=== PATIENT | female | born 1955 | race Caucasian/White ===

== ENCOUNTER 2019-04-02 18:47 | Emergency (ER) | payer MEDICARE, OTHER, SELFPAY ==
[2019-04-02 18:54] VITALS: BP 135/86; PULSE 84; TEMP 37.2; O2SAT 92
--- NOTE | 2019-04-02 19:01 | DI.RAD.S_ITS ---
PROCEDURE: XR CHEST 2V INDICATIONS: pain TECHNIQUE: 2 views of the chest were acquired. COMPARISON: None. FINDINGS: Surgical changes and devices: None. Lungs and pleura: Trace bilateral pleural effusions. Cephalization of pulmonary vasculature and interstitial prominence compatible with CHF.. Mediastinum: Mediastinal contours are normal. Heart size is normal. Bones and chest wall: No suspicious bony abnormalities. Soft tissues appear unremarkable. IMPRESSION: CHF with trace bilateral pleural effusions. Dictated by: Joanie Gray MD, PhD on 04/02/2019 at 19:39 Approved by: Joanie Gray MD, PhD on 04/02/2019 at 19:39
[2019-04-02 21:00] LABS: Bacteria Urine None Seen
[2019-04-02 21:05] LABS: Add Manual Diff / Slide Review NO; Basophils Absolute Auto 100 /uL (0-100); Basophils Percent Auto 0.6 % (0-2); Eosinophils Absolute Auto 0 /uL (0-450); Eosinophils Percent Auto 0.3 % (2-4); Hematocrit 38.6 % (36-46); Lymphocytes Absolute Auto 900 /uL (1100-4500); Lymphocytes Percent Auto 9.6 % (25-40); Mean Corpuscular HGB Conc 33.7 % (30-36); Mean Corpuscular Hemoglobin 33.7 PG (26-34); Monocytes Absolute Auto 900 /uL (0-900); Monocytes Percent Auto 10.2 % (3-14); Neutrophils Absolute Auto 7200 /uL (1500-7000); Neutrophils Percent Auto 79.3 % (50-75); Platelet Count 206 X10^3/uL (150-400); Red Blood Cell Count 3.86 X10^6/uL (4.0-5.2); Red Cell Distribution Width 13.4 % (11.6-14.8)
[2019-04-02 21:11] LABS: RBC Urine 0-1/HPF (0-5/HPF); Squamous Epithelial Cell Urine None Seen (0-5/HPF); WBC Urine 0-1/HPF (0-5/HPF)
[2019-04-02 21:12] LABS: Culture Indicated Urine Cult Not Indicated
[2019-04-02 21:16] LABS: BUN Creatinine Ratio 27.5 (6-22); Blood Urea Nitrogen 22 mg/dL (7-17); Calcium 9.6 mg/dL (8.4-10.2); Carbon Dioxide 28 mmol/L (22-32); Chloride 102 mmol/L (98-107); Estimated Glomerular Filt Rate > 60.0 mL/min (>60); Glucose 115 mg/dL (80-110); HEMOLYSIS < 15 (0-50); Potassium 4.5 mmol/L (3.4-5.1); Sodium 136 mmol/L (137-145)
[2019-04-02 21:28] LABS: Troponin I < 0.012 ng/mL (0.01-0.034)
[2019-04-02 21:29] LABS: B Type Natriuretic Peptide < 100 (<100)
[2019-04-02 21:52] VITALS: BP 143/80; PULSE 75; RESP 20; O2SAT 95
[2019-04-02 22:30] VITALS: BP 144/77; PULSE 72; RESP 16; O2SAT 94
[2019-04-02 23:00] VITALS: BP 120/94; PULSE 74; RESP 25; O2SAT 94
--- NOTE | 2019-04-02 23:18 | ED.CHESTPAIN ---
HPI - Chest Pain General Chief Complaint: Chest Pain Stated Complaint: thinks she hurt her chest from coughing Time Seen by Provider: 04/02/19 22:21 Source: patient and family Mode of arrival: ambulatory Limitations: no limitations History of Present Illness HPI narrative: The patient comes emergency department complaining of chest pain after an asthma exacerbation last week. She states that she frequently has pain in various places in her chest wall after coughing fits or asthma exacerbations. Patient states that it hurts to take a deep breath. She states she was [place] on [place] for vacation, and that she called her doctor because the pain. She states her doctor said she might have ?punctured a lung? and that she should come here to get checked out. Patient denies any fevers. No nausea or vomiting. No diaphoresis. No history of known heart problems, though she does state that she was told previously that she might have congestive heart failure. Patient denies any swelling in her legs. No other complaints at this time. Related Data Previous Rx's Medication Instructions Recorded hydrocodone-acetaminophen 1 tab PO Q4H PRN #10 tab 04/02/19 Allergies Allergy/AdvReac Type Severity Reaction Status Date / Time Penicillins Allergy Verified 04/02/19 19:00 Review of Systems Constitutional Denies chills, Denies fever(s), Denies lethargy and Denies weakness Eyes Denies change in vision, Denies eye discharge, Denies irritation and Denies loss of vision ENT Ears, Nose, Mouth, and Throat: Denies change in voice, Denies neck pain and Denies sore throat Cardiovascular Reports chest pain, Denies irregular heart rhythm, Denies lightheadedness, Denies palpitations, Denies dyspnea, Denies dyspnea on exertion and Denies orthopnea Respiratory Reports cough, Denies dyspnea and Denies dyspnea on exertion Gastrointestinal Gastrointestinal: Denies abdominal pain, Denies change in bowel habits, Denies diarrhea, Denies nausea and Denies vomiting Genitourinary Denies hematuria, Denies flank pain, Denies urinary incontinence and Denies urinary urgency Musculoskeletal Denies neck pain Integumentary/Breasts Denies pruritus, Denies erythema, Denies rash and Denies wounds Neurologic Denies confusion, Denies loss of vision and Denies weakness Psychiatric Denies anxiety, Denies confusion, Denies depression, Denies homicidal ideation and Denies suicidal ideation Endocrine Denies palpitations Hematologic/Lymphatic Denies easy bruising [facility] Medical History Asthma (Acute) Surgical History No pertinent past surgical history (Acute) Social History Smoking Status: Former smoker Social History Smoking Status: Former smoker Exam Initial Vital Signs Initial Vital Signs: Vital Signs Temperature 98.9 F 04/02/19 18:54 Pulse Rate 84 04/02/19 18:54 Blood Pressure 135/86 04/02/19 18:54 Pulse Oximetry 92 04/02/19 18:54 Const General: cooperative and well developed Nutritional Appearance: well nourished Orientation: alert, awake, oriented x3 and not confused HENMT Head: normocephalic and atraumatic Ears: external ears normal Nose: external nose normal and No nasal discharge Face and sinus: face symmetric and No dry mucous membranes Mouth: oral mucosae normal and moist mucous membranes Teeth and gingiva: dentition normal Eyes General: appearance normal, both eyes and all related structures Eyelids: eyelids normal Conjunctivae: conjunctivae normal Sclera: sclerae normal Pupils: PERRL EOM: EOM intact bilaterally Neck Neck: normal visual inspection, trachea midline, No lymphadenopathy, No midline deformity and No JVD Lymphatic: No lymphedema Chest Other: Chest wall tenderness under left breast. No rib step-off. Resp Effort & Inspection: normal respiratory effort, able to speak in complete sentences, no respiratory distress and no use of accessory muscles Auscultation: clear to auscultation bilaterally, no rales, no rhonchi and no wheezes Cardio Rate: regular rate Rhythm: regular rhythm Heart Sounds: no click, no gallops, no murmurs and no rubs Pulses: normal peripheral pulses GI Inspection: non-distended Palpation: soft, no hepatosplenomegaly, No guarding, No pulsatile mass and No tender Auscultation: normal bowel sounds Back/Spine/Pelvis Back: No CVA tenderness Cervical Spine: cervical ROM normal and No pain with cervical ROM Thoracic/Lumbar Spine: thoracic and lumbar spine normal to inspection Skin General: no rashes or lesions noted, No jaundice and No petechiae Neuro General: alert, oriented x3, gait normal and no focal motor deficits Speech: speech normal Extrem General: full ROM, no clubbing, cyanosis or edema, no pedal edema and no calf tenderness Psych Appearance: well kempt Mental Status: mental status grossly normal Attitude: cooperative Thought Content: normal and suicidality Judgment: judgment good Course Course Narrative: Patient was treated with Toradol and Vicodin in the emergency department, and worked up with a chest x-ray, which showed trace edema in the patient's bilateral lungs. No cardiomegaly. Patient's BNP was less than 100. I discussed with her that while the x-ray reading reported trace fluid in her lungs, there is nothing else to indicate that the patient has congestive heart failure. She should follow up with her primary care physician in [place] where she lives, when she is done with her vacation on [facility]. Orders Ordered: Discontinued Medications Hydrocodone Bitart/Acetaminophen ([place] 5/325) 1 tab PO NOW ONE Stop: 04/02/19 23:19 Last Admin: 04/02/19 23:34 Dose: 1 tab Ketorolac Tromethamine (Toradol) 60 mg IM NOW ONE Stop: 04/02/19 23:19 Last Admin: 04/02/19 23:34 Dose: 60 mg Vital Signs - 8 hr 04/02/19 18:54 04/02/19 21:52 04/02/19 22:30 Temperature 98.9 F Pulse Rate 84 75 72 Respiratory Rate 20 16 Blood Pressure 135/86 Blood Pressure [Left Arm] 143/80 H 144/77 H Pulse Oximetry 92 95 94 04/02/19 23:00 Temperature Pulse Rate 74 Respiratory Rate 25 H Blood Pressure Blood Pressure [Left Arm] 120/94 H Pulse Oximetry 94 MDM - Chest Pain Medical Records Data Attestation: I reviewed the patient's medical records. Lab Data Attestation: I reviewed the patient's lab results. Result diagrams: 04/02/19 20:55 04/02/19 20:55 Lab Results 04/02/19 04/02/19 04/02/19 Range/Units 20:00 20:55 20:55 WBC 9.0 (4.5-11.0) X10^3/uL RBC 3.86 L (4.0-5.2) X10^6/uL Hgb 13.0 (12.0-16.0) g/dL Hct 38.6 (36-46) % MCV 100.0 (80-100) fL MCH 33.7 (26-34) PG MCHC 33.7 (30-36) % RDW 13.4 (11.6-14.8) % Plt Count 206 (150-400) X10^3/uL Neut % (Auto) 79.3 H (50-75) % Lymph % (Auto) 9.6 L (25-40) % [place] % (Auto) 10.2 (3-14) % Eos % (Auto) 0.3 L (2-4) % Baso % (Auto) 0.6 (0-2) % Neut # (Auto) 7200 H (5566-7978) /uL Lymph # (Auto) 900 L (2124-7729) /uL [place] # (Auto) 900 (0-900) /uL Eos # (Auto) 0 (0-450) /uL Baso # (Auto) 100 (0-100) /uL Sodium 136 L (137-145) mmol/L Potassium 4.5 (3.4-5.1) mmol/L Chloride 102 (98-107) mmol/L Carbon Dioxide 28 (22-32) mmol/L BUN 22 H (7-17) mg/dL Creatinine 0.80 (0.52-1.04) mg/dL Estimated GFR > 60.0 (>60) mL/min BUN/Creatinine Ratio 27.5 H (6-22) Glucose 115 H (80-110) mg/dL Calcium 9.6 (8.4-10.2) mg/dL Troponin I (0.01-0.034) ng/mL B-Natriuretic Peptide (<100) Urine RBC 0-1/hpf (0-5/HPF) Urine WBC 0-1/hpf (0-5/HPF) Ur Squamous Epith Cells None seen (0-5/HPF) Urine Bacteria None seen (None) Ur Culture Indicated? Cult not indicated 04/02/19 04/02/19 Range/Units 20:55 20:55 WBC (4.5-11.0) X10^3/uL RBC (4.0-5.2) X10^6/uL Hgb (12.0-16.0) g/dL Hct (36-46) % MCV (80-100) fL MCH (26-34) PG MCHC (30-36) % RDW (11.6-14.8) % Plt Count (150-400) X10^3/uL Neut % (Auto) (50-75) % Lymph % (Auto) (25-40) % [place] % (Auto) (3-14) % Eos % (Auto) (2-4) % Baso % (Auto) (0-2) % Neut # (Auto) (6144-0621) /uL Lymph # (Auto) (5311-2926) /uL [place] # (Auto) (0-900) /uL Eos # (Auto) (0-450) /uL Baso # (Auto) (0-100) /uL Sodium (137-145) mmol/L Potassium (3.4-5.1) mmol/L Chloride (98-107) mmol/L Carbon Dioxide (22-32) mmol/L BUN (7-17) mg/dL Creatinine (0.52-1.04) mg/dL Estimated GFR (>60) mL/min BUN/Creatinine Ratio (6-22) Glucose (80-110) mg/dL Calcium (8.4-10.2) mg/dL Troponin I < 0.012 (0.01-0.034) ng/mL B-Natriuretic Peptide < 100 (<100) Urine RBC (0-5/HPF) Urine WBC (0-5/HPF) Ur Squamous Epith Cells (0-5/HPF) Urine Bacteria (None) Ur Culture Indicated? Urine Dip Bedside Urine Glucose Negative Bedside Urine Bilirubin - Negative Bedside Urine Ketone - Negative Urine Specific [place] 1.020 Bedside Urine Occult Blood + Bedside Urine pH 5.5 Bedside Urine Protein - Negative Bedside Urine Urobilinogen - Negative Bedside Urine Nitrite - Negative Bedside Urine Leukocytes - Negative Esterase Imaging Data Chest x-ray: Radiologist's impression: PROCEDURE: XR CHEST 2V INDICATIONS: pain TECHNIQUE: 2 views of the chest were acquired. COMPARISON: None. FINDINGS: Surgical changes and devices: None. Lungs and pleura: Trace bilateral pleural effusions. Cephalization of pulmonary vasculature and interstitial prominence compatible with CHF.. Mediastinum: Mediastinal contours are normal. Heart size is normal. Bones and chest wall: No suspicious bony abnormalities. Soft tissues appear unremarkable. IMPRESSION: CHF with trace bilateral pleural effusions. Dictated by: Joanie Gray MD, PhD on 04/02/2019 at 19:39 Approved by: Joanie Gray MD, PhD on 04/02/2019 at 19:39 Discharge Plan Departure Patient Disposition: Home Clinical Impression: Chest wall muscle strain Qualifiers: Encounter type: initial encounter Qualified Code(s): S29.011A - Strain of muscle and tendon of front wall of thorax, initial encounter Discharge Date/Time: 04/02/19 23:47 Interventions: ED Discharge Assessment Last Done: 04/02/19 23:46 Instructions: DI for Costochondritis Activity Restrictions/Additional Instructions: Your chest x-ray was read by the radiologist as showing trace fluid in your lungs. However, your lab indicating congestive heart failure was negative. Additionally, you do not have any swelling around your ankles. You may take the medication for pain, as needed. Please follow up with your primary care physician in [place]. Prescriptions: New hydrocodone-acetaminophen 5-325 mg tablet 1 tab PO Q4H PRN (Reason: pain) Qty: 10 RF: 0
--- NOTE | 2019-04-02 23:23 | ED_ITS ---
HPI - Chest Pain General Chief Complaint: Chest Pain Stated Complaint: thinks she hurt her chest from coughing Time Seen by Provider: 04/02/19 22:21 Source: patient and family Mode of arrival: ambulatory Limitations: no limitations History of Present Illness HPI narrative: The patient comes emergency department complaining of chest pain after an asthma exacerbation last week. She states that she frequently has pain in various places in her chest wall after coughing fits or asthma exacerbations. Patient states that it hurts to take a deep breath. She states she was over on [place] for vacation, and that she called her doctor because the pain. She states her doctor said she might have ?punctured a lung? and that she should come here to get checked out. Patient denies any fevers. No nausea or vomit ing. No diaphoresis. No history of known heart problems, though she does state that she was told previously that she might have congestive heart failure. Patient denies any swelling in her legs. No other complaints at this time. Related Data Previous Rx's Medication Instructions Recorded hydrocodone-acetaminophen 1 tab PO Q4H PRN #10 tab 04/02/19 Allergies Allergy/AdvReac Type Severity Reaction Status Date / Time Penicillins Allergy Verified 04/02/19 19:00 Review of Systems Constitutional Denies chills, Denies fever(s), Denies lethargy and Denies weakness Eyes Denies change in vision, Denies eye discharge, Denies irritation and Denies loss of vision ENT Ears, Nose, Mouth, and Throat: Denies change in voice, Denies neck pain and Denies sore throat Cardiovascular Reports chest pain, Denies irregular heart rhythm, Denies lightheadedness, Denies palpitations, Denies dyspnea, Denies dyspnea on exertion and Denies orthopnea Respiratory Reports cough, Denies dyspnea and Denies dyspnea on exertion Gastrointestinal Gastrointestinal: Denies abdominal pain, Denies change in bowel habits, Denies diarrhea, Denies nausea and Denies vomiting Genitourinary Denies hematuria, Denies flank pain, Denies urinary incontinence and Denies urinary urgency Musculoskeletal Denies neck pain Integumentary/Breasts Denies pruritus, Denies erythema, Denies rash and Denies wounds Neurologic Denies confusion, Denies loss of vision and Denies weakness Psychiatric Denies anxiety, Denies confusion, Denies depression, Denies homicidal ideation and Denies suicidal ideation Endocrine Denies palpitations Hematologic/Lymphatic Denies easy bruising PFSH Medical History Asthma (Acute) Surgical History No pertinent past surgical history (Acute) Social History Smoking Status: Former smoker Social History Smoking Status: Former smoker Exam Initial Vital Signs Initial Vital Signs: Vital Signs Temperature 98.9 F 04/02/19 18:54 Pulse Rate 84 04/02/19 18:54 Blood Pressure 135/86 04/02/19 18:54 Pulse Oximetry 92 04/02/19 18:54 Const General: cooperative and well developed Nutritional Appearance: well nourished Orientation: alert, awake, oriented x3 and not confused HENMT Head: normocephalic and atraumatic Ears: external ears normal Nose: external nose normal and No nasal discharge Face and sinus: face symmetric and No dry mucous membranes Mouth: oral mucosae normal and moist mucous membranes Teeth and gingiva: dentition normal Eyes General: appearance normal, both eyes and all related structures Eyelids: eyelids normal Conjunctivae: conjunctivae normal Sclera: sclerae normal Pupils: PERRL EOM: EOM intact bilaterally Neck Neck: normal visual inspection, trachea midline, No lymphadenopathy, No midline deformity and No JVD Lymphatic: No lymphedema Chest Other: Chest wall tenderness under left breast. No rib step-off. Resp Effort & Inspection: normal respiratory effort, able to speak in complete sentences, no respiratory distress and no use of accessory muscles Auscultation: clear to auscultation bilaterally, no rales, no rhonchi and no wheezes Cardio Rate: regular rate Rhythm: regular rhythm Heart Sounds: no click, no gallops, no murmurs and no rubs Pulses: normal peripheral pulses GI Inspection: non-distended Palpation: soft, no hepatosplenomegaly, No guarding, No pulsatile mass and No tender Auscultation: normal bowel sounds Back/Spine/Pelvis Back: No CVA tenderness Cervical Spine: cervical ROM normal and No pain with cervical ROM Thoracic/Lumbar Spine: thoracic and lumbar spine normal to inspection Skin General: no rashes or lesions noted, No jaundice and No petechiae Neuro General: alert, oriented x3, gait normal and no focal motor deficits Speech: speech normal Extrem General: full ROM, no clubbing, cyanosis or edema, no pedal edema and no calf tenderness Psych Appearance: well kempt Mental Status: mental status grossly normal Attitude: cooperative Thought Content: normal and suicidality Judgment: judgment good Course Course Narrative: Patient was treated with Toradol and Vicodin in the emergency department, and worked up with a chest x-ray, which showed trace edema in the patient's bilateral lungs. No cardiomegaly. Patient's BNP was less than 100. I discussed with her that while the x-ray reading reported trace fluid in her lungs, there is nothing else to indicate that the patient has congestive heart failure. She should follow up with her primary care physician in [place] where she lives, when she is done with her vacation on [facility]. Orders Ordered: Discontinued Medications Hydrocodone Bitart/Acetaminophen ([place] 5/325) 1 tab PO NOW ONE Stop: 04/02/19 23:19 Last Admin: 04/02/19 23:34 Dose: 1 tab Ketorolac Tromethamine (Toradol) 60 mg IM NOW ONE Stop: 04/02/19 23:19 Last Admin: 04/02/19 23:34 Dose: 60 mg Vital Signs - 8 hr 04/02/19 18:54 04/02/19 21:52 04/02/19 22:30 Temperature 98.9 F Pulse Rate 84 75 72 Respiratory Rate 20 16 Blood Pressure 135/86 Blood Pressure [Left Arm] 143/80 H 144/77 H Pulse Oximetry 92 95 94 04/02/19 23:00 Temperature Pulse Rate 74 Respiratory Rate 25 H Blood Pressure Blood Pressure [Left Arm] 120/94 H Pulse Oximetry 94 MDM - Chest Pain Medical Records Data Attestation: I reviewed the patient's medical records. Lab Data Attestation: I reviewed the patient's lab results. Result diagrams: 04/02/19 20:55 04/02/19 20:55 Lab Results 04/02/19 04/02/19 04/02/19 Range/Units 20:00 20:55 20:55 WBC 9.0 (4.5-11.0) X10^3/uL RBC 3.86 L (4.0-5.2) X10^6/uL Hgb 13.0 (12.0-16.0) g/dL Hct 38.6 (36-46) % MCV 100.0 (80-100) fL MCH 33.7 (26-34) PG MCHC 33.7 (30-36) % RDW 13.4 (11.6-14.8) % Plt Count 206 (150-400) X10^3/uL Neut % (Auto) 79.3 H (50-75) % Lymph % (Auto) 9.6 L (25-40) % [place] % (Auto) 10.2 (3-14) % Eos % (Auto) 0.3 L (2-4) % Baso % (Auto) 0.6 (0-2) % Neut # (Auto) 7200 H (7784-8398) /uL Lymph # (Auto) 900 L (9596-5371) /uL [place] # (Auto) 900 (0-900) /uL Eos # (Auto) 0 (0-450) /uL Baso # (Auto) 100 (0-100) /uL Sodium 136 L (137-145) mmol/L Potassium 4.5 (3.4-5.1) mmol/L Chloride 102 (98-107) mmol/L Carbon Dioxide 28 (22-32) mmol/L BUN 22 H (7-17) mg/dL Creatinine 0.80 (0.52-1.04) mg/dL Estimated GFR > 60.0 (>60) mL/min BUN/Creatinine Ratio 27.5 H (6-22) Glucose 115 H (80-110) mg/dL Calcium 9.6 (8.4-10.2) mg/dL Troponin I (0.01-0.034) ng/mL B-Natriuretic Peptide (<100) Urine RBC 0-1/hpf (0-5/HPF) Urine WBC 0-1/hpf (0-5/HPF) Ur Squamous Epith Cells None seen (0-5/HPF) Urine Bacteria None seen (None) Ur Culture Indicated? Cult not indicated 04/02/19 04/02/19 Range/Units 20:55 20:55 WBC (4.5-11.0) X10^3/uL RBC (4.0-5.2) X10^6/uL Hgb (12.0-16.0) g/dL Hct (36-46) % MCV (80-100) fL MCH (26-34) PG MCHC (30-36) % RDW (11.6-14.8) % Plt Count (150-400) X10^3/uL Neut % (Auto) (50-75) % Lymph % (Auto) (25-40) % [place] % (Auto) (3-14) % Eos % (Auto) (2-4) % Baso % (Auto) (0-2) % Neut # (Auto) (3492-0938) /uL Lymph # (Auto) (6833-3769) /uL [place] # (Auto) (0-900) /uL Eos # (Auto) (0-450) /uL Baso # (Auto) (0-100) /uL Sodium (137-145) mmol/L Potassium (3.4-5.1) mmol/L Chloride (98-107) mmol/L Carbon Dioxide (22-32) mmol/L BUN (7-17) mg/dL Creatinine (0.52-1.04) mg/dL Estimated GFR (>60) mL/min BUN/Creatinine Ratio (6-22) Glucose (80-110) mg/dL Calcium (8.4-10.2) mg/dL Troponin I < 0.012 (0.01-0.034) ng/mL B-Natriuretic Peptide < 100 (<100) Urine RBC (0-5/HPF) Urine WBC (0-5/HPF) Ur Squamous Epith Cells (0-5/HPF) Urine Bacteria (None) Ur Culture Indicated? Urine Dip Bedside Urine Glucose Negative Bedside Urine Bilirubin - Negative Bedside Urine Ketone - Negative Urine Specific [place] 1.020 Bedside Urine Occult Blood + Bedside Urine pH 5.5 Bedside Urine Protein - Negative Bedside Urine Urobilinogen - Negative Bedside Urine Nitrite - Negative Bedside Urine Leukocytes - Negative Esterase Imaging Data Chest x-ray: Radiologist's impression: PROCEDURE: XR CHEST 2V INDICATIONS: pain TECHNIQUE: 2 views of the chest were acquired. COMPARISON: None. FINDINGS: Surgical changes and devices: None. Lungs and pleura: Trace bilateral pleural effusions. Cephalization of pulmonary vasculature and interstitial prominence compatible with CHF.. Mediastinum: Mediastinal contours are normal. Heart size is normal. Bones and chest wall: No suspicious bony abnormalities. Soft tissues appear unremarkable. IMPRESSION: CHF with trace bilateral pleural effusions. Dictated by: Joanie Gray MD, PhD on 04/02/2019 at 19:39 Approved by: Joanie Gray MD, PhD on 04/02/2019 at 19:39 Discharge Plan Departure Patient Disposition: Home Clinical Impression: Chest wall muscle strain Qualifiers: Encounter type: initial encounter Qualified Code(s): S29.011A - Strain of muscle and tendon of front wall of thorax, initial encounter Discharge Date/Time: 04/02/19 23:47 Interventions: ED Discharge Assessment Last Done: 04/02/19 23:46 Instructions: DI for Costochondritis Activity Restrictions/Additional Instructions: Your chest x-ray was read by the radiologist as showing trace fluid in your lungs. However, your lab indicating congestive heart failure was negative. Additionally, you do not have any swelling around your ankles. You may take the medication for pain, as needed. Please follow up with your primary care physician in [place]. Prescriptions: New hydrocodone-acetaminophen 5-325 mg tablet 1 tab PO Q4H PRN (Reason: pain) Qty: 10 RF: 0
[2019-04-02] MEDS: HYDROCODONE/ACET 5/325 TABLET 1 TAB PO (23:34)
[2019-04-02] MEDS: KETOROLAC 60 MG/2 ML VIAL IM (23:34)
== END 2019-04-02 23:47 | disposition home or self-care (01) ==
PROVIDERS: Emergency Provider Emergency Medicine
DX: S29.011A Strain of muscle and tendon of front wall of thorax, initial encounter (principal)
CPT/HCPCS: 36415; 71046; 80048; 81003; 81015; 83880; 84484; 85025; 96372; 99283; 99284; J1885

== ENCOUNTER → 2020-12-22 10:34 | Outpatient (CLI) | payer MEDICARE, OTHER, SELFPAY ==
--- NOTE | 2020-12-22 10:41 | DI.MRI.S_ITS ---
PROCEDURE: MR CERVICAL SPINE WO CON INDICATIONS: Radiculopathy, cervical region TECHNIQUE: Noncontrast sagittal T1 spin echo and T2 fast spin echo, sagittal STIR, foraminal oblique sagittal T2 fast spin echo, and axial gradient echo or T2 fast spin echo through the cervical spine. COMPARISON: None. FINDINGS: Image quality: Degraded by patient motion artifact. Alignment and Curvature: There is trace C3-C4 and C7-T1 retrolisthesis. There is trace C4-C5 anterolisthesis. There is loss of normal for cervical spine curvature with mild reversal curvature from C4-C7. Bone Marrow: Mild reactive endplate changes noted adjacent to the C3-C4, C4-C5, C5-C6, C6-C7 and C7-T1 discs. Spinal Cord: Visualized spinal cord has normal size and signal. No cerebellar tonsillar herniation. Paraspinous Soft Tissues: No paravertebral masses. Prevertebral soft tissues are normal in thickness. C2-C3: Loss of disc signal. Mild, diffuse disc bulge. Mild bilateral facet hypertrophy. No central stenosis. No neural foraminal narrowing. No neural compression. C3-C4: Loss of disc signal and height. Mild, diffuse disc bulge. Moderate right mild left facet hypertrophy. Moderate to severe narrowing of the central canal. Moderate bilateral uncovertebral joint hypertrophy. Severe bilateral neural foraminal narrowing with compression of the exiting C4 nerve roots. C4-C5: Loss of disc signal. Mild bilateral facet hypertrophy. No central stenosis. Mild bilateral neural foraminal narrowing. No neural compression. C5-C6: Loss of disc signal. Mild, diffuse disc bulge. Mild bilateral facet hypertrophy. Mild right and moderate left uncovertebral joint hypertrophy. Moderate narrowing of the central canal. Moderate right and severe left neural foraminal narrowing with compression of the exiting left C6 nerve root. C6-C7: Loss of disc signal and height. Mild, diffuse disc bulge. Mild bilateral facet hypertrophy. Mild right and moderate left uncovertebral joint hypertrophy. Moderate narrowing of the central canal. Moderate right and severe left neural foraminal narrowing with compression of the exiting left C7 nerve root. C7-T1: Loss of disc signal and height. Moderate, diffuse disc bulge. Mild bilateral facet hypertrophy. Mild narrowing of the central canal. Severe bilateral neural foraminal narrowing with compression of the exiting C8 nerve roots. IMPRESSION: 1. Multilevel degenerative disc disease. 2. Multilevel facet arthropathy. 3. Moderate to severe C3-C4 central canal narrowing. 4. Severe bilateral C3-C4 and C7-T1 neural foraminal narrowing with compression of the exiting bilateral C4 and C8 nerve roots. Severe left C5-C6 and C6-C7 neural foraminal narrowing with compression of the exiting left C6 and exiting left C7 nerve roots. Dictated by: Joanie Gary MD, PhD on 12/22/2020 at 11:51 Approved by: Joanie Gray MD, PhD on 12/22/2020 at 11:57
== END ==
PROVIDERS: Referring Provider Physician Assistant; Visit Provider Physician Assistant
DX: M50.11 Cervical disc disorder with radiculopathy, high cervical region (principal); M47.22 Other spondylosis with radiculopathy, cervical region; M48.02 Spinal stenosis, cervical region
CPT/HCPCS: 72141

== ENCOUNTER → 2022-11-14 12:58 | Outpatient (CLI) | payer MEDICARE, OTHER, SELFPAY ==
[2022-11-14 13:23] LABS: Add Manual Diff / Slide Review NO; Basophils Absolute Auto 100 /uL (0-100); Basophils Percent Auto 0.9 % (0-2); Eosinophils Absolute Auto 100 /uL (0-450); Eosinophils Percent Auto 1.3 % (2-4); Hematocrit 36.7 % (36-46); Hemoglobin 12.6 g/dL (12.0-16.0); Lymphocytes Absolute Auto 900 /uL (1100-4500); Lymphocytes Percent Auto 13.2 % (25-40); Mean Corpuscular HGB Conc 34.3 % (30-36); Mean Corpuscular Hemoglobin 33.6 PG (26-34); Mean Corpuscular Volume 98.1 fL (80-100); Monocytes Absolute Auto 600 /uL (0-900); Monocytes Percent Auto 8.3 % (3-14); Neutrophils Absolute Auto 5100 /uL (1500-7000); Neutrophils Percent Auto 76.3 % (50-75); Platelet Count 199 X10^3/uL (150-400); Red Blood Cell Count 3.74 X10^6/uL (4.0-5.2); White Blood Cell Count 6.7 X10^3/uL (4.5-11.0)
[2022-11-14 13:47] LABS: Alanine Aminotransferase 27 IU/L (<35); Albumin 4.3 g/dL (3.5-5.0); Albumin Globulin Ratio 1.3 (1.0-2.8); Alkaline Phosphatase 56 U/L (38-126); Aspartate Aminotransferase 37 IU/L (14-36); BUN Creatinine Ratio 26.4 (6-22); Bilirubin Total 0.4 mg/dL (0.2-1.3); Blood Urea Nitrogen 37 mg/dL (7-17); Calcium 9.4 mg/dL (8.4-10.2); Carbon Dioxide 25 mmol/L (22-32); Chloride 99 mmol/L (98-107); Cholesterol 240 mg/dL (140-199); Estimated Glomerular Filt Rate 41 mL/min (>60); Globulin 3.4 g/dL (1.7-4.1); Glucose 136 mg/dL (80-110); HEMOLYSIS < 15 (0-50); Potassium 4.6 mmol/L (3.4-5.1); Sodium 134 mmol/L (137-145); Total Protein 7.7 g/dL (6.3-8.2); Triglycerides 75 mg/dL (35-150)
[2022-11-14 14:04] LABS: HDL Cholesterol 120 mg/dL (40-60); LDL Cholesterol Calculated 105 mg/dL (<100)
[2022-11-14 14:17] LABS: TSH w/ Reflex to FT4 1.02 uIU/mL (0.47-4.68)
[2022-11-16 20:12] LABS: Tissue Transglutaminase IgG <2 U/mL (0-5)
== END ==
PROVIDERS: PCP Family Medicine; Referring Provider Family Medicine; Visit Provider Family Medicine
DX: E03.9 Hypothyroidism, unspecified (principal); E78.00 Pure hypercholesterolemia, unspecified; I10 Essential (primary) hypertension; M06.4 Inflammatory polyarthropathy; R14.0 Abdominal distension (gaseous)
CPT/HCPCS: 36415; 80053; 80061; 83516; 84443; 85025

== ENCOUNTER → 2023-06-19 14:00 | Outpatient (CLI) | payer MEDICARE, OTHER, SELFPAY ==
[2023-06-19 19:43] LABS: Add Manual Diff / Slide Review NO; Basophils Absolute Auto 0 /uL (0-100); Basophils Percent Auto 0.7 % (0-2); Eosinophils Absolute Auto 0 /uL (0-450); Eosinophils Percent Auto 0.5 % (2-4); Hematocrit 34.1 % (36-46); Hemoglobin 11.7 g/dL (12.0-16.0); Lymphocytes Absolute Auto 700 /uL (1100-4500); Lymphocytes Percent Auto 9.6 % (25-40); Mean Corpuscular HGB Conc 34.4 % (30-36); Mean Corpuscular Hemoglobin 34.6 PG (26-34); Mean Corpuscular Volume 100.6 fL (80-100); Monocytes Absolute Auto 400 /uL (0-900); Monocytes Percent Auto 6.2 % (3-14); Neutrophils Absolute Auto 5900 /uL (1500-7000); Platelet Count 200 X10^3/uL (150-400); Red Blood Cell Count 3.39 X10^6/uL (4.0-5.2); Red Cell Distribution Width 13.4 % (11.6-14.8); White Blood Cell Count 7.1 X10^3/uL (4.5-11.0)
== END ==
PROVIDERS: PCP Family Medicine; Visit Provider Internal Medicine Pulmonary Disease
DX: J45.51 Severe persistent asthma with (acute) exacerbation (principal); I77.82 Antineutrophilic cytoplasmic antibody [ANCA] vasculitis; D84.9 Immunodeficiency, unspecified; J98.09 Other diseases of bronchus, not elsewhere classified; J40 Bronchitis, not specified as acute or chronic; Y92.89 Other specified places as the place of occurrence of the external cause
CPT/HCPCS: 85025

== ENCOUNTER → 2023-09-25 11:37 | Outpatient (CLI) | payer MEDICARE, OTHER, SELFPAY ==
[2023-09-25 19:36] LABS: Add Manual Diff / Slide Review NO; Basophils Absolute Auto 0 /uL (0-100); Basophils Percent Auto 0.4 % (0-2); Eosinophils Absolute Auto 100 /uL (0-450); Eosinophils Percent Auto 0.9 % (2-4); Hematocrit 39.8 % (36-46); Hemoglobin 13.6 g/dL (12.0-16.0); Lymphocytes Absolute Auto 800 /uL (1100-4500); Lymphocytes Percent Auto 13.1 % (25-40); Mean Corpuscular HGB Conc 34.1 % (30-36); Mean Corpuscular Hemoglobin 34.2 PG (26-34); Mean Corpuscular Volume 100.1 fL (80-100); Monocytes Absolute Auto 600 /uL (0-900); Monocytes Percent Auto 10.3 % (3-14); Neutrophils Absolute Auto 4400 /uL (1500-7000); Neutrophils Percent Auto 75.3 % (50-75); Platelet Count 204 X10^3/uL (150-400); Red Blood Cell Count 3.98 X10^6/uL (4.0-5.2); Red Cell Distribution Width 13.1 % (11.6-14.8); White Blood Cell Count 5.8 X10^3/uL (4.5-11.0)
[2023-09-25 19:56] LABS: Alanine Aminotransferase 28 IU/L (<35); Albumin 4.7 g/dL (3.5-5.0); Albumin Globulin Ratio 1.3 (1.0-2.8); Alkaline Phosphatase 49 U/L (38-126); Aspartate Aminotransferase 44 IU/L (14-36); BUN Creatinine Ratio 29.7 (6-22); Bilirubin Total 0.7 mg/dL (0.2-1.3); Blood Urea Nitrogen 30 mg/dL (7-17); Calcium 10.4 mg/dL (8.4-10.2); Carbon Dioxide 28 mmol/L (22-32); Chloride 94 mmol/L (98-107); Cholesterol 274 mg/dL (140-199); Estimated Glomerular Filt Rate 60 mL/min (>60); Globulin 3.5 g/dL (1.7-4.1); Glucose 122 mg/dL (80-110); HDL Cholesterol 97 mg/dL (40-60); HEMOLYSIS < 15 (0-50); LDL Cholesterol Calculated 152 mg/dL (<100); Potassium 4.5 mmol/L (3.4-5.1); Sodium 134 mmol/L (137-145); Total Protein 8.2 g/dL (6.3-8.2); Triglycerides 126 mg/dL (35-150)
[2023-09-25 20:14] LABS: TSH w/ Reflex to FT4 0.04 uIU/mL (0.47-4.68)
[2023-09-25 20:37] LABS: Vitamin B12 973 pg/mL (239-931)
== END ==
PROVIDERS: PCP Family Medicine; Visit Provider Family Medicine
DX: F33.1 Major depressive disorder, recurrent, moderate (principal); N18.31 Chronic kidney disease, stage 3a; I10 Essential (primary) hypertension; E78.2 Mixed hyperlipidemia; R73.9 Hyperglycemia, unspecified; M06.4 Inflammatory polyarthropathy; D80.6 Antibody deficiency with near-normal immunoglobulins or with hyperimmunoglobulinemia; J45.50 Severe persistent asthma, uncomplicated; K75.81 Nonalcoholic steatohepatitis (NASH); E03.9 Hypothyroidism, unspecified
CPT/HCPCS: 80053; 80061; 82607; 84439; 84443; 85025

== ENCOUNTER → 2023-12-21 12:06 | Outpatient (CLI) | payer MEDICARE, OTHER, SELFPAY ==
[2023-12-21 19:40] LABS: Alanine Aminotransferase 28 IU/L (<35); Albumin 4.6 g/dL (3.5-5.0); Albumin Globulin Ratio 1.6 (1.0-2.8); Alkaline Phosphatase 52 U/L (38-126); Aspartate Aminotransferase 38 IU/L (14-36); Bilirubin Total 0.7 mg/dL (0.2-1.3); Bilirubin Unconjugated 0.5 mg/dL (0.0-1.1); Globulin 2.9 g/dL (1.7-4.1); HEMOLYSIS < 15 (0-50); Total Protein 7.5 g/dL (6.3-8.2)
[2023-12-21 20:29] LABS: Vitamin B12 776 pg/mL (239-931)
[2023-12-21 20:38] LABS: TSH w/ Reflex to FT4 0.06 uIU/mL (0.47-4.68)
[2023-12-21 21:04] LABS: Free T4, Direct Thyroxine 1.54 ng/dL (0.78-2.19)
== END ==
PROVIDERS: PCP Family Medicine; Visit Provider Family Medicine
DX: E03.9 Hypothyroidism, unspecified (principal); E78.2 Mixed hyperlipidemia; R79.89 Other specified abnormal findings of blood chemistry
CPT/HCPCS: 80076; 82607; 84439; 84443; 86803

== ENCOUNTER → 2024-04-02 11:46 | Outpatient (CLI) | payer MEDICARE, OTHER, SELFPAY ==
--- NOTE | 2024-04-02 11:48 | DI.MRI.S_ITS ---
PROCEDURE: MRFOOT LT WO CON INDICATIONS: Injury to left foot and ankle, SP ORIF TECHNIQUE: Multiphasic, multisequence MRI of the forefoot was performed, without intravenous contrast administration. COMPARISON: [facility] ([facility]), CR, XR FOOT LT MIN 3V, 03/18/2024, 11:06. FINDINGS: Image quality: Diagnostic. Susceptibility artifact from surgical hardware are seen. Bones and joints: Postsurgical changes are noted at 1st TMT joint from joint fusion. Significant susceptibility artifacts are noted partially limits the adjacent osseous structures. Cxsv-zx-[id number] osteoarthritic changes are noted throughout midfoot and forefoot joints most notably involving 2nd through 5th TMT joints with significant joint space narrowing, subchondral sclerosis and cystic changes and prominent dorsal marginal osteophyte formation. No marrow edema. No acute fracture or dislocation. No evidence of metatarsal stress fractures. Bipartite medial sesamoid of 1st metatarsal head is seen. No definite signal abnormality is seen in the sesamoid bones. Soft tissues: No gross signal abnormality is seen in the visualized portion of plantar foot muscles. Extensor and flexor tendons are grossly intact. Principal Lisfranc ligament is not well seen due to artifacts in this area. No gross full-thickness Lisfranc ligament rupture. Sagittal images shows likely moderate grade 5th MTP joint plantar plate tear near its distal insertion. IMPRESSION: 1. Susceptibility artifacts in 1st TMT joint from prior joint fusion. No gross marrow edema. No acute fracture or dislocation. No evidence of metatarsal stress fractures. 2. Grpg-hv-kpbcrafw osteoarthritic changes throughout midfoot and forefoot most notably involving TMT joints as above. 3. Finding is suggestive of low to moderate grade plantar plate tear involving 5th MTP joint. 4. Extensor and flexor tendons are grossly intact. 5. No definite full-thickness right Lisfranc ligament rupture. Dictated by: Joni Beaulieu M.D. on 04/02/2024 at 15:30 Approved by: Joni Beaulieu M.D. on 04/02/2024 at 15:36
--- NOTE | 2024-04-02 11:48 | DI.MRI.S_ITS ---
PROCEDURE: MR ANKLE LT WO CON INDICATIONS: Injury to left foot and ankle, SP ORIF TECHNIQUE: Noncontrast sagittal T1 spin echo and T2 fast spin echo with fat saturation, axial proton density fast spin echo and T2 fast spin echo with fat saturation, coronal T1 spin echo and T2 fast spin echo with fat saturation through the ankle/hindfoot. COMPARISON: [facility] ([facility]), CR, XR FOOT LT MIN 3V, 03/18/2024, 11:06. FINDINGS: Image quality: Diagnostic. Susceptibility artifacts from midfoot fusion hardware are seen. Bones and joints: Patient is status post fusion at 1st [facility] joint with significant susceptibility artifacts. Osteoarthritic changes are noted throughout midfoot and hindfoot joints more notably involving TMT joints with joint space narrowing, subchondral sclerosis and subcortical cystic changes as well as dorsal marginal osteophyte formation. No acute fracture or dislocation. No gross osteochondral injuries of talar dome. No suspicious bony lesions. Small amount of tibiotalar joint effusion is seen, no loose bodies. Medial structures: The posterior tibialis tendon is thickened at the level of distal talus and talonavicular joint. The flexor digitorum longus, and flexor hallucis longus tendons are intact. The posterior tibial neurovascular bundle appears normal within the tarsal tunnel, without extrinsic mass effect. The deltoid ligament and spring ligament are mildly thickened. Lateral structures: The anterior talofibular ligament is mildly attenuated suggestive of low-grade sprain/intrasubstance partial-thickness tear. The calcaneofibular, and posterior talofibular ligaments appear intact. More superiorly, the anterior and posterior tibiofibular ligaments appear intact, as is the intermalleolar ligament. The tibiofibular syndesmosis is normal in width at 2 mm or less. The peroneus brevis tendon is intact. Thickened peroneus longus tendon at the level of mid to distal calcaneus extending to its distal insertion is seen with intrasubstance T2 hyperintense signal distally. The sinus tarsi demonstrates normal fatty signal, without edema, fibrosis, or cyst formation. Visualized sinus tarsi components (cervical ligament, interosseous talocalcaneal ligament, roots of the inferior extensor retinaculum) appear normal. Anterior structures: The tibialis anterior, extensor hallucis longus, and extensor digitorum longus tendons appear intact. The dorsal talonavicular ligament appears intact. Posterior and plantar structures: Achilles tendon is intact. Medial and lateral bands of the plantar fascia are of normal thickness. No abductor digiti quinti muscle atrophy to suggest Olivier neuropathy. IMPRESSION: 1. Prior fusion of 1st TMT joint with susceptibility artifacts. No gross marrow edema. No acute fracture or dislocation. Nhsk-sy-jyaqnkqm midfoot and hindfoot joint osteoarthritis more notably involving TMT joints. No suspicious bony lesions. No osteochondral injuries of talar dome. 2. Mild tendinosis involving distal posterior tibialis tendon at the level of distal talus and talonavicular joint. Moderate tendinosis and intrasubstance partial-thickness tear involving peroneus longus tendon at the level of mid to distal calcaneus extending to its distal insertion. No full-thickness ankle tendon rupture. 3. Mildly thickened medial ankle ligament suggestive of low-grade medial ankle ligament sprain. Low-grade sprain/partial-thickness tear involving anterior talofibular ligament. No full-thickness ankle ligament rupture. Dictated by: Joni Beaulieu M.D. on 04/02/2024 at 15:20 Approved by: Joni Beaulieu M.D. on 04/02/2024 at 15:30
== END ==
LOC: MRI 11:48
PROVIDERS: PCP Family Medicine; Referring Provider Family Medicine; Visit Provider Family Medicine
DX: S93.492A Sprain of other ligament of left ankle, initial encounter (principal); M19.072 Primary osteoarthritis, left ankle and foot; M25.572 Pain in left ankle and joints of left foot; M79.672 Pain in left foot; Z98.890 Other specified postprocedural states
CPT/HCPCS: 73718; 73721

== ENCOUNTER → 2024-09-12 10:29 | Outpatient (CLI) | payer MEDICARE, OTHER, SELFPAY ==
[2024-09-12 17:57] LABS: Add Manual Diff / Slide Review NO; Basophils Absolute Auto 0 /uL (0-100); Eosinophils Absolute Auto 100 /uL (0-450); Eosinophils Percent Auto 2.1 % (2-4); Hematocrit 38.6 % (36-46); Hemoglobin 12.8 g/dL (12.0-16.0); Lymphocytes Absolute Auto 900 /uL (1100-4500); Lymphocytes Percent Auto 18.5 % (25-40); Mean Corpuscular HGB Conc 33.1 % (30-36); Mean Corpuscular Hemoglobin 33.1 PG (26-34); Monocytes Absolute Auto 900 /uL (0-900); Neutrophils Absolute Auto 2900 /uL (1500-7000); Neutrophils Percent Auto 59.4 % (50-75); Platelet Count 195 X10^3/uL (150-400); Red Blood Cell Count 3.86 X10^6/uL (4.0-5.2); Red Cell Distribution Width 13.4 % (11.6-14.8); White Blood Cell Count 4.9 X10^3/uL (4.5-11.0)
[2024-09-12 18:17] LABS: Alanine Aminotransferase 36 IU/L (<35); Albumin 4.5 g/dL (3.5-5.0); Albumin Globulin Ratio 1.3 (1.0-2.8); Alkaline Phosphatase 56 U/L (38-126); Aspartate Aminotransferase 42 IU/L (14-36); Bilirubin Total 0.5 mg/dL (0.2-1.3); Blood Urea Nitrogen 31 mg/dL (7-17); Calcium 9.8 mg/dL (8.4-10.2); Carbon Dioxide 28 mmol/L (22-32); Chloride 97 mmol/L (98-107); Estimated Glomerular Filt Rate 51 mL/min (>60); Globulin 3.4 g/dL (1.7-4.1); Glucose 118 mg/dL (80-110); HEMOLYSIS < 15 (0-50); Sodium 135 mmol/L (137-145); Total Protein 7.9 g/dL (6.3-8.2)
[2024-09-12 19:18] LABS: MRSA (Nasal) PCR NOT DETECTED (Not Detect)
== END ==
PROVIDERS: PCP Family Medicine; Visit Provider Student in an Organized Health Care Education/Training Program
DX: Z01.818 Encounter for other preprocedural examination (principal)
CPT/HCPCS: 80053; 85025; 87797

== ENCOUNTER 2024-11-12 17:09 | Emergency (ER) | payer MEDICARE, OTHER, SELFPAY ==
[2024-11-12] VITALS (10 sets, daily range): BP systolic 142–175; BP diastolic 66–83; PULSE 77–89; RESP 18–33; TEMP 36.9; O2SAT 93–97; BMI 26.4
--- NOTE | 2024-11-12 17:18 | EKG_ITS ---
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
--- NOTE | 2024-11-12 17:18 | DI.CT.S_ITS ---
PROCEDURE: CT ANGIO HEAD AND NECK INDICATIONS: double vision x 2 weeks TECHNIQUE: After the administration of intravenous contrast, 1 mm thick sections acquired from the aortic arch through the [place] of [place]. 3-dimensional formvuw-mcwxaxlam-zvqfjqghoo (MIP) and/or volume rendering reformats were acquired of the central intracranial vasculature and neck separately. For radiation dose reduction, the following was used: automated exposure control, adjustment of mA and/or kV according to patient size. COMPARISON: None. 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 CCAs: No stenosis, occlusion, or aneurysm. ICA origins (by NASCET criteria): Thick irregular plaque with noncalcified component seen at the left bulb, with 30-50% narrowing. Mild calcifications at the right bulb without significant narrowing ICAs: No stenosis, occlusion or aneurysm. ECAs: Origins are patent. Vertebral arteries: Xfmq-te-yybfetir bilateral calcifications at the origins Soft tissues: No significant mass, aneurysm, or lymphadenopathy Lung apices: Moderate fibrotic changes in the anterior upper lobes, partially seen Bones: There are degenerative changes. Mild anterolisthesis of L4 on L5. IMPRESSION: No high-grade stenosis. No large vessel occlusion. If there is high concern for infarct, consider MRI. 30-50% narrowing is seen at the left ICA bulb due to irregular calcified and noncalcified plaque. Any quantitative measurements of stenosis were performed using NASCET criteria. Dictated by: Lm Rivera M.D. on 11/12/2024 at 18:55 Approved by: Lm Rivera M.D. on 11/12/2024 at 19:01
--- NOTE | 2024-11-12 17:18 | DI.CT.S_ITS ---
PROCEDURE: CT HEAD/BRAIN WO CON INDICATIONS: double vision x 2 weeks TECHNIQUE: Noncontrast 4.5 mm thick angled axial sections acquired from the foramen magnum to the vertex, with coronal and sagittal reformats. For radiation dose reduction, the following was used: automated exposure control, adjustment of mA and/or kV according to patient size. COMPARISON: None. FINDINGS: Image quality: Diagnostic. CSF spaces: Basal cisterns are patent. No extra-axial fluid collections. The ventricles are symmetric in size and shape. Brain: No intracranial bleeds or masses. There is cerebral volume loss for age, with resultant ventricular and sulcal prominence. There are periventricular and deep white matter chronic small vessel ischemic changes. There is intracranial internal carotid artery atherosclerosis. Skull and face: Calvarium and visualized facial bones appear intact, without suspicious lesions. Sinuses: Visualized sinuses and mastoids are clear. IMPRESSION: No acute intracranial pathology. Dictated by: Awilda Walker M.D. on 11/12/2024 at 19:10 Approved by: Awilda Walker M.D. on 11/12/2024 at 19:15
--- NOTE | 2024-11-12 17:18 | DI.RAD.S_ITS ---
PROCEDURE: XR CHEST 1V INDICATIONS: Possible stroke TECHNIQUE: One view of the chest was acquired. COMPARISON: None. FINDINGS: Surgical changes and devices: Right shoulder reverse arthroplasty. Overlying monitoring wires. Lungs and pleura: Lungs are clear. No pleural effusions or pneumothorax. Mediastinum: Mediastinal contours appear normal. Heart size is normal. Bones and chest wall: No suspicious bony lesions. Overlying soft tissues appear unremarkable. IMPRESSION: No acute cardiopulmonary abnormality is seen. Dictated by: Awilda Walker M.D. on 11/12/2024 at 18:07 Approved by: Awilda Walker M.D. on 11/12/2024 at 18:07
--- NOTE | 2024-11-12 18:08 | PC.NURSE ---
Pt reports that she has double vision. Pt continues to drive her car. Reports that symptoms started two weeks ago.
--- NOTE | 2024-11-12 18:10 | ED.NEUROSD ---
HPI - Neuro Symptoms/Deficit General Chief Complaint: Neuro Symptoms/Deficit Stated Complaint: sent by eye dr vision disturbance Time Seen by Provider: 11/12/24 17:24 Source: patient Mode of arrival: Family Vehicle History of Present Illness HPI Narrative: Patient is a 69-year-old female history of ANCA vasculitis, inflammatory polyarthropathy, persistent asthma presenting today with double vision. She reports that she has had double vision which resolved when she covers 1 eye for about 2 weeks. She was seen evaluated by ophthalmology who sent her here for stroke rule out. She reports having some mild headache some dizziness maybe she has got some numbness on her right leg which comes and goes but no significant weakness. No other numbness on her right leg is definitely reproducible whenever she touches a certain spot on leg. No speech difficulty. She was on chronically on prednisone for her asthma and other rheumatoid diseases. No chest pain shortness of breath. Although she reports that she was having a little trouble breathing now and is due for her inhaler On Anticoagulants: No Related Data Home Medications Medication Instructions Recorded Confirmed fluticasone propionate 50 1 spray intranasal DAILY 11/09/21 09/12/24 mcg/actuation nasal spray,suspension immune glob,gamm(IgG)10 %-malt-IgA IV 11/09/21 09/12/24 over 50 mcg/mL intravenous solution (Octagam) furosemide 20 mg tablet 10 mg PO QAM PRN 09/01/22 09/12/24 budesonide 160 mcg-glycopyr 9 inh inhalation 04/14/24 09/12/24 mcg-formot 4.8 mcg/actuation HFA inhaler (Breztri Aerosphere) ferrous sulfate 325 mg (65 mg 325 mg PO DAILY PRN 08/07/24 09/12/24 iron) tablet levothyroxine 50 mcg tablet 50 mcg PO DAILY 08/07/24 09/12/24 pravastatin 40 mg tablet 40 mg PO DAILY 08/07/24 09/12/24 prednisone 1 mg tablet 4 mg PO DAILY 08/07/24 09/12/24 prednisone 10 mg tablet 10 mg PO BID 08/07/24 09/12/24 valacyclovir 500 mg tablet 500 mg PO BID PRN HSV 08/07/24 09/12/24 levalbuterol tartrate 45 inhalation 09/12/24 09/12/24 mcg/actuation aerosol inhaler nifedipine 30 mg tablet,extended 30 mg PO DAILY 09/12/24 09/12/24 release Previous Rx's Medication Instructions Recorded omeprazole 20 mg capsule,delayed 20 mg PO DAILY #90 caps 09/25/22 release duloxetine 60 mg capsule,delayed 60 mg PO DAILY #90 caps 04/14/24 release epinephrine 0.3 mg/0.3 mL 0.3 mg (0.3 mL) IM ONCE #2 ea 04/14/24 injection, auto-injector famotidine 20 mg tablet 20 mg PO DAILY #90 tabs 04/14/24 irbesartan 300 mg tablet 300 mg PO DAILY #90 tabs 04/14/24 gabapentin 100 mg capsule See Rx Instructions PO .COMPLEX 08/07/24 PRN pain #180 caps hydrocodone 5 mg-acetaminophen 325 1 tab PO BEDTIME PRN pain #14 tabs 08/07/24 mg tablet duloxetine 30 mg capsule,delayed 30 mg PO DAILY #90 caps 09/02/24 release trazodone 50 mg tablet 50 - 100 mg (1 - 2 x 50 mg) PO 09/23/24 BEDTIME PRN insomnia #90 tabs prednisone 20 mg tablet 60 mg (3 x 20 mg) PO DAILY #60 tabs 11/12/24 Allergies Allergy/AdvReac Type Severity Reaction Status Date / Time amoxicillin [From Augmentin] Allergy Severe Anaphylaxis Verified 04/14/24 10:58 melatonin Allergy Severe Anaphylaxis Verified 04/14/24 10:58 morphine Allergy Severe Anaphylaxis/ Verified 04/14/24 10:58 WHEEZING levofloxacin [From Levaquin] Allergy Unknown JOINT ACHES Verified 04/14/24 10:58 rosuvastatin Allergy Unknown MYALGIA Verified 04/14/24 10:58 Penicillins Allergy Verified 04/14/24 10:58 bupropion AdvReac Severe Dizziness Verified 04/14/24 10:58 [From Wellbutrin SR] dapsone AdvReac Intermediate Verified 04/14/24 10:58 nifedipine AdvReac Mild Abdominal Verified 04/14/24 10:58 Pain metronidazole AdvReac Unknown Verified 04/14/24 10:58 NUTS Allergy Severe Anaphylaxis Uncoded 04/14/24 10:58 ezetimible AdvReac Mild Muscle and Uncoded 04/14/24 10:58 joint pain Review of Systems Hematologic/Lymphatic On Anticoagulants: No Patient History Medical History Postmenopausal Inflammatory polyarthropathy Fracture, delayed union Hepatic dysfunction Other chronic sinusitis Severe persistent asthma, uncomplicated (~10/2021) Dependent edema Microscopic polyangiitis Essential (primary) hypertension Allergic rhinitis Family history of abdominal aortic aneurysm (AAA) History of colonic polyps Immunodeficiency, unspecified Surgical History S/P laparoscopic colectomy Social History Smoking Status: Never smoker Smoking Status: Never smoker alcohol intake frequency: holidays/special occasions only Exam Initial Vital Signs Initial Vital Signs: Vital Signs Pulse Rate 77 11/12/24 17:23 Respiratory Rate 24 11/12/24 17:23 Pulse Oximetry 96 11/12/24 17:23 GENERAL: Alert pleasant well-appearing 69-year-old female and in no acute distress. HEENT: Head atraumatic, mildly tender over temporal area EOMI, pupils reactive, face symmetric, moist mucous membranes CARDIOVASCULAR: Regular rate and rhythm without murmurs, rubs or gallops. RESPIRATORY: Breath sounds equal bilaterally, no wheezes rales or rhonchi. ABDOMEN: Soft, nontender. Normoactive bowel sounds all 4 quadrants. No guarding or rebound. EXTREMITIES: Normal range of motion, no clubbing or edema. Neurovascularly intact NEUROLOGICAL: Alert and oriented x4.Normal gait and speech. Cranial nerves II through XII grossly intact. Good aasbmx-af-tbpd, good ylys-es-oobl, strength equal bilaterally, no dysarthria or aphasia, sensation in tact to soft touch bilaterally, no visual changes, no facial droop SKIN: Warm, dry, no laceration, no petechiae, no rashes or lesions. Scores NIH Stroke Scale Level of Conciousness: Alert, keenly responsive Ask month/age: Answers both questions correctly. Open/close eyes, close hand: Performs both tasks correctly Best gaze horizontal: Normal Visual flores: No visual loss Facial palsy: Normal symetrical movement Left arm drift: No drift for full 10 sec Right arm drift: No drift for full 10 sec Left leg drift: No drift for full 5 sec Right leg drift: No drift for full 5 sec Limb ataxia: Absent Sensory on face/arms/legs: Normal, no sensory loss Best language: No aphasia, normal Dysarthria: Normal Extinction or inattention: No abnormality Total NIH Stroke scale score: 0 Course Orders Ordered: ED Orders 11/12/24 17:52 Urine Drug Screen, Rapid Stat Urine Microscopic Stat 11/12/24 18:00 Complete Blood Count AUTO DIFF Stat Comprehensive Metabolic Panel Stat Magnesium Stat PTT Partial Thromboplastin Patrice Stat Prothrombin Time INR Stat Troponin & CK Cardiac Panel Stat Discontinued Medications Acetaminophen (Acetaminophen 325 Mg Tablet) 975 mg PO NOW ONE Stop: 11/12/24 18:55 Last Admin: 11/12/24 18:57 Dose: 975 mg Documented By: Albuterol (Albuterol 2.5 Mg/3 Ml Neb (Adult)) 2.5 mg INH NOW ONE Stop: 11/12/24 18:36 Last Admin: 11/12/24 18:46 Dose: 2.5 mg Documented By: Sodium Chloride (Normal Saline 0.9%) 1,000 mls @ 1,000 mls/hr IV BOLUS ONE Stop: 11/12/24 19:39 Last Infusion: 11/12/24 19:38 Dose: 500 mls/hr Documented By: Admin: 11/12/24 18:46 Dose: 1,000 mls/hr Documented By: Ondansetron HCl (Ondansetron 4 Mg/2 Ml Inj) 4 mg IV NOW PRN PRN Reason: Nausea And Vomiting Ondansetron HCl (Ondansetron 4 Mg Odt) 4 mg SL NOW PRN PRN Reason: Nausea And Vomiting Prednisone (Prednisone 20 Mg Tablet) 60 mg PO NOW ONE Stop: 11/12/24 18:41 Last Admin: 11/12/24 18:46 Dose: 60 mg Documented By: Vital Signs Vital signs: Vital Signs - 8 hr 11/12/24 19:00 11/12/24 19:00 11/12/24 19:30 Pulse Rate 78 78 Respiratory Rate 29 H 23 Blood Pressure 159/74 H Pulse Oximetry 97 96 11/12/24 19:30 Pulse Rate Respiratory Rate Blood Pressure 155/72 H Pulse Oximetry MDM - Neuro Symptoms/Deficit Lab Data 11/12/24 18:00 11/12/24 18:00 Labs: Lab Results 11/12/24 11/12/24 Range/Units 17:52 18:00 WBC 6.5 (4.5-11.0) X10^3/uL RBC 3.64 L (4.0-5.2) X10^6/uL Hgb 12.1 (12.0-16.0) g/dL Hct 36.4 (36-46) % MCV 100.2 H (80-100) fL MCH 33.3 (26-34) PG MCHC 33.2 (30-36) % RDW 14.1 (11.6-14.8) % Plt Count 210 (150-400) X10^3/uL Neut % (Auto) 70.8 (50-75) % Lymph % (Auto) 18.0 L (25-40) % [place] % (Auto) 9.9 (3-14) % Eos % (Auto) 0.3 L (2-4) % Baso % (Auto) 1.0 (0-2) % Neut # (Auto) 4600 (2962-4470) /uL Lymph # (Auto) 1200 (5997-4501) /uL [place] # (Auto) 600 (0-900) /uL Eos # (Auto) 0 (0-450) /uL Baso # (Auto) 100 (0-100) /uL PT 9.7 (9.4-12.5) SECONDS INR 0.9 (0.9-1.3) APTT 31 (25.1-36.5) SECONDS Sodium 135 L (137-145) mmol/L Potassium 5.0 (3.4-5.1) mmol/L Chloride 102 (98-107) mmol/L Carbon Dioxide 22 (22-32) mmol/L BUN 54 H (7-17) mg/dL Creatinine 1.35 H (0.52-1.04) mg/dL Estimated GFR 42 L (>60) mL/min BUN/Creatinine Ratio 40.0 H (6-22) Glucose 127 H (80-110) mg/dL Calcium 9.3 (8.4-10.2) mg/dL Magnesium 2.5 H (1.6-2.3) mg/dL Total Bilirubin 0.5 (0.2-1.3) mg/dL AST 45 H (14-36) IU/L ALT 33 (<35) IU/L Alkaline Phosphatase 58 (38-126) U/L Total Creatine Kinase 106 (30-135) U/L Troponin I < 0.012 (0.01-0.034) ng/mL Total Protein 8.0 (6.3-8.2) g/dL Albumin 4.6 (3.5-5.0) g/dL Globulin 3.4 (1.7-4.1) g/dL Albumin/Globulin Ratio 1.4 (1.0-2.8) Urine RBC 0-1/hpf (0-5/HPF) Urine WBC None seen (0-5/HPF) Ur Squamous Epith Cells 0-1 /hpf (0-5/HPF) Urine Bacteria None seen (None) Ur Culture Indicated? Cult not indicated Vol Urine Centrifuged Low vol <10ml unspun A U Opiates 300ng/mL cut Negative (Negative) Ur Oxycodone Screen Negative (Negative) Urine Methadone Screen Negative (Negative) Ur Barbiturates Screen Negative (Negative) U Tricyclic Antidepress Negative (Negative) Ur Phencyclidine Scrn Negative (Negative) Ur Amphetamines Screen Negative (Negative) U Methamphetamines Scrn Negative (Negative) Ur MDMA Scrn (Ecstasy) Negative (Negative) U Benzodiazepines Scrn Negative (Negative) Urine Cocaine Screen Negative (Negative) U Marijuana (THC) Screen Negative (Negative) Urine pH Normal (Normal) Urine Specific [place] Normal (Normal) Ur Creatinine Normal (Normal) Urine Dip Bedside Urine Glucose Negative Bedside Urine Bilirubin - Negative Bedside Urine Ketone - Negative Urine Specific [place] 1.025 Bedside Urine Occult Blood + Bedside Urine pH 5.5 Bedside Urine Protein - Negative Bedside Urine Urobilinogen - Negative Bedside Urine Nitrite - Negative Bedside Urine Leukocytes - Negative Esterase Imaging Data CT scan - head: Radiologist's Impression: PROCEDURE: CT HEAD/BRAIN WO CON INDICATIONS: double vision x 2 weeks TECHNIQUE: Noncontrast 4.5 mm thick angled axial sections acquired from the foramen magnum to the vertex, with coronal and sagittal reformats. For radiation dose reduction, the following was used: automated exposure control, adjustment of mA and/or kV according to patient size. COMPARISON: None. FINDINGS: Image quality: Diagnostic. CSF spaces: Basal cisterns are patent. No extra-axial fluid collections. The ventricles are symmetric in size and shape. Brain: No intracranial bleeds or masses. There is cerebral volume loss for age, with resultant ventricular and sulcal prominence. There are periventricular and deep white matter chronic small vessel ischemic changes. There is intracranial internal carotid artery atherosclerosis. Skull and face: Calvarium and visualized facial bones appear intact, without suspicious lesions. Sinuses: Visualized sinuses and mastoids are clear. IMPRESSION: No acute intracranial pathology. Dictated by: Awilda Walker M.D. on 11/12/2024 at 19:10 CTA - brain/neck: Radiologist's Impression: PROCEDURE: CT ANGIO HEAD AND NECK INDICATIONS: double vision x 2 weeks TECHNIQUE: After the administration of intravenous contrast, 1 mm thick sections acquired from the aortic arch through the [place] of [place]. 3-dimensional qomosya-ytiutxiok-qzvcnnyuls (MIP) and/or volume rendering reformats were acquired of the central intracranial vasculature and neck separately. For radiation dose reduction, the following was used: automated exposure control, adjustment of mA and/or kV according to patient size. COMPARISON: None. FINDINGS: Image quality: Diagnostic HEAD ANGIOGRAPHY: Anterior circulation: ICAs: Mild cavernous calcifications bilaterally Symmetric appearing ophthalmic arteries ACAs: Patent MCAs: Patent AComm: No aneurysm Venous sinuses: Patent Posterior circulation: Dominance: Equal Vertebral arteries: Patent Basilar artery: Patent PComms: No aneurysm endoscopy registered nurse: Patent NECK ANGIOGRAPHY: Aortic arch and subclavian arteries: Normal flow, no aneurysm. CCAs: No stenosis, occlusion, or aneurysm. ICA origins (by NASCET criteria): Thick irregular plaque with noncalcified component seen at the left bulb, with 30-50% narrowing. Mild calcifications at the right bulb without significant narrowing ICAs: No stenosis, occlusion or aneurysm. ECAs: Origins are patent. Vertebral arteries: [place]ape-ug-nfkednlz bilateral calcifications at the origins Soft tissues: No significant mass, aneurysm, or lymphadenopathy Lung apices: Moderate fibrotic changes in the anterior upper lobes, partially seen Bones: There are degenerative changes. Mild anterolisthesis of L4 on L5. IMPRESSION: No high-grade stenosis. No large vessel occlusion. If there is high concern for infarct, consider MRI. 30-50% narrowing is seen at the left ICA bulb due to irregular calcified and noncalcified plaque. Any quantitative measurements of stenosis were performed using NASCET criteria. Dictated by: mL Rivera M.D. on 11/12/2024 at 18:55 Approved by: Lm Rivera M.D. on 11/12/2024 at 19:01 ECG Data Attestation: I personally reviewed and interpreted this ECG as follows: Prior ECG tracings: not available for review Interpretation: Normal sinus rhythm rate 78 SC interval 168 QRS [address] changes no T-wave inversions no priors to MDM Narrative Medical decision making narrative: MDM CC: Double vision Complicating co-morbidities: ANCA vasculitis, asthma Data collected from: Patient Medical records reviewed: PCP notes reviewed Differential considered: Temporal arteritis Exam documented above, pertinent findings include: Awake alert NIH stroke scale 0, no wheezing no respiratory distress mildly tender bilateral temporal side Lab Test results independently reviewed as above. Pertinent findings: WBC 6.5 hemoglobin 12.1 hematocrit 36.4 platelets 210 Sodium 135 potassium 5.0 chloride 102 dioxide 22 BUN 54 previously 31 creatinine 1.35 previously 1.15 Magnesium 2.5 Troponin negative Independently reviewed EKG as above No ischemia Imaging studies independently reviewed: No intracranial hemorrhage or evidence of large vessel occlusion Consultations: Dr. Felix from surgery states that patient could follow up out patient for temporal artery biopsy Treatments: Albuterol prednisone Tylenol Re-evaluations: Patient is feeling better after albuterol Discussion: At this time patient 69-year-old female presenting today with double vision ongoing for number of weeks. She really has no focal deficits no evidence of CVA or large vessel occlusion. With history of ANCA vasculitis and bilateral temporal artery tenderness would consider temporal arteritis. She has been given 60 mg of prednisone she really does not have loss of vision. Discussion briefly with surgery who can do temporal artery biopsy if needed. At this time follow up with primary, continue prednisone HORACE might also be related to her vasculitis. She was given a L of fluid. Discharge Plan Departure Patient Disposition: Home Clinical Impression: Temporal arteritis, HORACE (acute kidney injury) Instructions: Giant Cell Arteritis Activity Restrictions/Additional Instructions: *You have been diagnosed with temporal arteritis *What to do: At this time you will need a biopsy to definitively diagnose temporal arteritis. You will also need to talk with your primary care provider in regards to prednisone and tapering but for now we will treat you on a high-dose steroid. *Continue to take medications as directed Prednisone 60 mg once a day for 7 days--you can not stop this abruptly please talk with your primary care provider about tapering down appropriately this will take a long time to come down safely *Follow up with your primary care provider in 2-3 days or call [phone] Dr. Felix, [facility] *Return to ER if you should have increasing headache visual changes numbness tingling weakness or any new, worsening or concerning symptoms Prescriptions: New prednisone 20 mg tablet 60 mg PO DAILY Qty: 60 0RF Rx Instructions: 60mg for 7 days, 50mg for 5 days, 40mg for 5 days, 30mg for 5 days, 20mg for 5days, 10mg for 5 days No Action fluticasone propionate 50 mcg/actuation spray,suspension 1 spray intranasal DAILY Rx Instructions: administer into each nostril Octagam 10 % solution IV omeprazole 20 mg capsule,delayed release(DR/EC) 20 mg PO DAILY Qty: 90 3RF ferrous sulfate 325 mg (65 mg iron) tablet 325 mg PO DAILY PRN duloxetine 30 mg capsule,delayed release(DR/EC) 30 mg PO DAILY Qty: 90 3RF trazodone 50 mg tablet 50 - 100 mg PO BEDTIME PRN (Reason: insomnia) Qty: 90 3RF Rx Instructions: TAKE 50-100 MG AT NIGHT NEEDED FOR SLEEP. Breztri Aerosphere 160-9-4.8 mcg/actuation HFA aerosol inhaler inhalation duloxetine 60 mg capsule,delayed release(DR/EC) 60 mg PO DAILY Qty: 90 3RF epinephrine 0.3 mg/0.3 mL auto-injector 0.3 mg IM ONCE Qty: 2 3RF Rx Instructions: as a single dose; may repeat once famotidine 20 mg tablet 20 mg PO DAILY Qty: 90 3RF irbesartan 300 mg tablet 300 mg PO DAILY Qty: 90 1RF valacyclovir 500 mg tablet 500 mg PO BID PRN (Reason: HSV) levothyroxine 50 mcg tablet 50 mcg PO DAILY pravastatin 40 mg tablet 40 mg PO DAILY prednisone 10 mg tablet 10 mg PO BID prednisone 1 mg tablet 4 mg PO DAILY hydrocodone-acetaminophen 5-325 mg tablet 1 tab PO BEDTIME PRN (Reason: pain) Qty: 14 0RF gabapentin 100 mg capsule See Rx Instructions PO .COMPLEX PRN (Reason: pain) Qty: 180 3RF Rx Instructions: 200 mg PO morning 3 capsules before bedtime PRN; nifedipine 30 mg tablet extended release 30 mg PO DAILY levalbuterol tartrate 45 mcg/actuation HFA aerosol inhaler inhalation Patient Comments: [NO ORIGINAL SIG] furosemide 20 mg tablet 10 mg PO QAM PRN Referrals: Armaan Barrios MD [Primary Care Provider] - Stand Alone Forms: Patient Portal/API/Survey
[2024-11-12 18:12] LABS: Add Manual Diff / Slide Review NO; Basophils Absolute Auto 100 /uL (0-100); Eosinophils Absolute Auto 0 /uL (0-450); Eosinophils Percent Auto 0.3 % (2-4); Hematocrit 36.4 % (36-46); Hemoglobin 12.1 g/dL (12.0-16.0); Lymphocytes Absolute Auto 1200 /uL (1100-4500); Mean Corpuscular HGB Conc 33.2 % (30-36); Mean Corpuscular Hemoglobin 33.3 PG (26-34); Mean Corpuscular Volume 100.2 fL (80-100); Monocytes Absolute Auto 600 /uL (0-900); Monocytes Percent Auto 9.9 % (3-14); Neutrophils Absolute Auto 4600 /uL (1500-7000); Neutrophils Percent Auto 70.8 % (50-75); Platelet Count 210 X10^3/uL (150-400); Red Blood Cell Count 3.64 X10^6/uL (4.0-5.2); Red Cell Distribution Width 14.1 % (11.6-14.8); White Blood Cell Count 6.5 X10^3/uL (4.5-11.0)
[2024-11-12 18:20] LABS: UR Morphine/Opiate cutoff 300 Negative (Negative); Ur Creatinine Normal (Normal); Ur Specific Gravity Normal (Normal); Urine Cocaine Negative (Negative); Urine Tetrahydrocannabinol Negative (Negative); Urine pH Normal (Normal)
[2024-11-12 18:20] LABS: INR 0.9 (0.9-1.3); Prothrombin Time 9.7 SECONDS (9.4-12.5)
[2024-11-12 18:21] LABS: Urine Amphetamines Negative (Negative); Urine Barbiturates Negative (Negative); Urine Benzodiazepines Negative (Negative); Urine MDMA Negative (Negative); Urine Methadone Negative (Negative); Urine Methamphetamines Negative (Negative); Urine Oxycodone Negative (Negative); Urine Phencyclidine Negative (Negative); Urine Tricyclic Antidepressant Negative (Negative)
[2024-11-12 18:23] LABS: PTT Partial Thromboplastin Tim 31 SECONDS (25.1-36.5)
[2024-11-12 18:24] LABS: Alanine Aminotransferase 33 IU/L (<35); Albumin 4.6 g/dL (3.5-5.0); Albumin Globulin Ratio 1.4 (1.0-2.8); Alkaline Phosphatase 58 U/L (38-126); Aspartate Aminotransferase 45 IU/L (14-36); Bilirubin Total 0.5 mg/dL (0.2-1.3); Blood Urea Nitrogen 54 mg/dL (7-17); Calcium 9.3 mg/dL (8.4-10.2); Carbon Dioxide 22 mmol/L (22-32); Chloride 102 mmol/L (98-107); Creatine Kinase 106 U/L (30-135); Estimated Glomerular Filt Rate 42 mL/min (>60); Globulin 3.4 g/dL (1.7-4.1); Glucose 127 mg/dL (80-110); HEMOLYSIS 35 (0-50); Magnesium 2.5 mg/dL (1.6-2.3); Sodium 135 mmol/L (137-145)
[2024-11-12 18:36] LABS: Troponin I < 0.012 ng/mL (0.01-0.034)
[2024-11-12] MEDS: ALBUTEROL 2.5 MG/3 ML NEB (ADULT) INH (18:46)
[2024-11-12] MEDS: SODIUM CHLORIDE 0.9% 1,000 ML 1000 ML IV (18:46)
[2024-11-12] MEDS: predniSONE 20 MG TABLET 60 MG PO (18:46)
[2024-11-12] MEDS: ACETAMINOPHEN 325 MG TABLET 975 MG PO (18:57)
--- NOTE | 2024-11-12 19:02 | PC.NURSE ---
Pt reports CHINO pain. Verbal order received from Dr Redding for Tylenol PO 975 mg.
[2024-11-12 21:51] LABS: Urine Volume Low Vol <10mL unspun
[2024-11-12 21:52] LABS: Bacteria Urine None Seen; Culture Indicated Urine Cult Not Indicated; RBC Urine 0-1/HPF (0-5/HPF); Squamous Epithelial Cell Urine 0-1 /HPF (0-5/HPF); WBC Urine None Seen (0-5/HPF)
== END 2024-11-12 19:40 | disposition home or self-care (01) ==
PROVIDERS: Emergency Medicine; Emergency Provider Emergency Medicine; PCP Family Medicine
DX: M31.6 Other giant cell arteritis (principal); N17.9 Acute kidney failure, unspecified; R51.9 Headache, unspecified; R29.700 NIHSS score 0; R42 Dizziness and giddiness
CPT/HCPCS: 36415; 70450; 70496; 70498; 71045; 80053; 80305; 81003; 81015; 82550; 83735; 84484; 85025; 85610; 85730; 93005; 94640; 96360; 99285; J7613; Q9967

== ENCOUNTER 2024-11-19 13:43 | Day surgery (SDC) | payer MEDICARE, OTHER, SELFPAY ==
--- NOTE | 2024-11-19 | PATH_ITS ---
[facility] Accession Number: [id number] No. of containers..01 Tissue . 01 Material submitted: . artery - RIGHT TEMPORAL ARTERY . 01 Clinical history: . RIGHT TEMPORAL ARTERY BIOPSY . 01 Diagnosis: RIGHT TEMPORAL ARTERY, BIOPSY: Histologically unremarkable medium-caliber artery. No evidence of arteritis. MRV 11/20/2024 1625 Local . 01 Comment: Immunohistochemistry for elastin is performed and demonstrates normal architecture. . Technical Note: The immunohistochemical stains reported were performed with appropriate controls at [facility] ([address] [place] [address] [address], [facility] [address]). This test was developed and performance characteristics validated by [facility]. It has not been cleared or approved by the Food and Drug Administration. . 01 Electronically signed: . Beverly Mota DO, Pathologist NPI- [id number] . 01 Gross description: . Received is one formalin-filled container labeled with the patient's name labeled R. temporal artery biopsy. The specimen consists of a 0.9 cm in length cylindrical shaped portion of tissue which measures 0.1 to 0.2 cm in diameter. The speicmen is inked and entirely submitted in cassette A1 to be possibly further sectioned at the time of embedding. ([id number]) /AUDREY 11/20/2024 0622 Local . 01 Pathologist provided ICD-10: M31.6 . 01 CPT . 850168, I56041 Specimen Comment: A courtesy copy of this report has been sent to [phone] Performed at: [address], [place], [place] [id number] MD Aramis Stephenson MD Phone: [phone]
[2024-11-19] MEDS: LACTATED RINGERS 1,000 ML 42 ML IV (13:59)
[2024-11-19] MEDS: ACETAMINOPHEN 325 MG TABLET 975 MG PO (13:59)
--- NOTE | 2024-11-19 14:33 | SUR.PREOP ---
verbal order from Margaret Low in pre-op
[2024-11-19 14:34] VITALS: BP 168/88; PULSE 88; RESP 16; TEMP 36.8; O2SAT 98; BMI 27.3
[2024-11-19] MEDS: ALBUTEROL/IPRATROPIUM 3 ML AMPUL INH (14:50)
--- NOTE | 2024-11-19 15:00 | PM.PREOP ---
Pre-operative Note COVID-19 COVID-19 status: Not tested Interval Note History & Physical reviewed/Exam performed by Physician: Yes Changes to H&P: No ASA Class (for procedural sedation): III
--- NOTE | 2024-11-19 15:20 | SUR.OPER ---
Addendum entered by Mayela Hunt R.N. 11/19/24 15:22: HEAD ON GEL DONUT Original Note: Supine on padded OR bed, head on pillow, LEFT ARM secured on padded arm board at <90 degrees abduction, RIGHT ARM PADDED AND TUCKED, legs uncrossed, safety belt at thigh, tape over blanket over lower legs.
[2024-11-19] MEDS: BUPIVACAINE 0.5% W/ EPI (PF) 30 ML VIAL INJ (15:22)
[2024-11-19 15:54] VITALS: BP 151/78; PULSE 85; RESP 24; TEMP 36.2; O2SAT 98
[2024-11-19 15:59] VITALS: BP 122/95; PULSE 81; RESP 19; O2SAT 98
[2024-11-19] MEDS: ALBUTEROL 2.5 MG/3 ML NEB (ADULT) INH (16:03)
[2024-11-19 16:04] VITALS: BP 170/90; PULSE 79; RESP 17; O2SAT 100
--- NOTE | 2024-11-19 16:04 | PM.OP.1 ---
Operative Date/Time/Diagnoses Date of procedure: 11/19/24 Time of procedure: 16:04 Pre-op diagnosis: Diplopia Post-op diagnosis: same Procedure & Clinicians Procedure: Right temporal artery biopsy Same procedure as scheduled: Yes Surgeon: Jovan Felix Information Security Architect: Sadiq Kumari Anesthesia Type: MAC +/- Operative Notes Procedure in detail: The patient was brought to the operating room and monitored anesthesia was induced. Her right buddhist was prepped and draped in the usual fashion and a time-out was performed. An arterial pulse was palpated just anterior to the right ear. We made a 4 cm axial incision over the temporal with a pulse was palpated. We dissected down through the temporoparietal fascia. An artery was found traversing posterior to anterior suggestive of a tortuous temporal artery. A 1.5 cm segment of artery was isolated and 4-0 silk suture ties were placed around it and tied off. There was one branch artery that was also tied off. We then excised the segment. There was complete hemostasis. We injected additional local into the fatty tissue and the dermis. We then closed the incision in layers using multiple interrupted 3-0 Vicryl dermal sutures followed by a running 4-0 Monocryl subcuticular stitch and Steri-Strips. EBL: 1 mL Specimen: Right temporal artery segment Sadiq GALVIN provided assistance with exposure, retraction and closure of incisions. Post-operative Condition: stable Disposition: PACU
[2024-11-19 16:11] VITALS: BP 171/83; PULSE 78; RESP 17; O2SAT 97
[2024-11-19 16:18] VITALS: BP 183/89; PULSE 75; RESP 14; O2SAT 92
== END 2024-11-19 16:20 | disposition home or self-care (01) ==
PROVIDERS: PCP Family Medicine; Referring Provider Surgery; Visit Provider Surgery
PROC: (CPT 37609; principal; 2024-11-19 15:00)
DX: H53.2 Diplopia (principal)
CPT/HCPCS: 37609; J2704; J7613

== ENCOUNTER → 2024-12-03 12:27 | Outpatient (CLI) | payer MEDICARE, OTHER, SELFPAY ==
--- NOTE | 2024-12-03 12:56 | DI.MRI.S_ITS ---
PROCEDURE: MR HEAD/BRAIN WO/W CON INDICATIONS: Diploplia TECHNIQUE: Noncontrast axial T1 spin echo, axial T2 fast spin echo, sagittal and axial FLAIR, coronal T2 fast spin echo, axial gradient echo, axial diffusion and ADC through the brain. After the administration of contrast, axial and coronal and sagittal T1 spin echo with fat saturation through the brain. COMPARISON: [facility], CT, CT HEAD/BRAIN WO CON, 11/12/2024, 18:34. [facility], CT, CT ANGIO HEAD AND NECK, 11/12/2024, 18:34. FINDINGS: Image quality: Excellent. CSF spaces: Basal cisterns are patent. No extra-axial fluid collections. Ventricles are normal in size and shape. Brain: No midline shift. No intracranial bleeds or masses. No abnormal intracranial enhancement. There is cerebral volume loss for age. There is periventricular white matter chronic small vessel ischemic change. The brainstem appears normal. Diffusion-weighted images demonstrate no acute infarct. No chronic ischemic insults. Normal intravascular flow voids are present. Skull and face: Calvarial marrow is normal in signal. Orbits appear normal. Sinuses: Sinuses and mastoids appear clear. IMPRESSION: 1. No acute process. No recent infarct. 2. Mild volume loss and small vessel ischemic disease. Dictated by: Korey Carrasco M.D. on 12/03/2024 at 13:22 Approved by: Korey Carrasco M.D. on 12/03/2024 at 13:24
== END ==
PROVIDERS: PCP Family Medicine; Referring Provider Family Medicine; Visit Provider Family Medicine
DX: H53.2 Diplopia (principal); I65.23 Occlusion and stenosis of bilateral carotid arteries; M31.6 Other giant cell arteritis
CPT/HCPCS: 70553; A9579

== ENCOUNTER → 2024-12-17 15:50 | Outpatient (CLI) | payer MEDICARE, OTHER, SELFPAY ==
[2024-12-26 23:38] LABS: MuSK Antibodies <1.0 U/mL (.)
[2025-01-05 13:23] LABS: Acetylcholine Modulating AB 6
== END ==
PROVIDERS: PCP Family Medicine; Referring Provider Family Medicine; Visit Provider Family Medicine
DX: H53.2 Diplopia (principal)
CPT/HCPCS: 83519

== ENCOUNTER → 2025-02-11 11:56 | Outpatient (CLI) | payer MEDICARE, OTHER, SELFPAY ==
[2025-02-11 12:39] LABS: Add Manual Diff / Slide Review NO; Basophils Absolute Auto 100 /uL (0-100); Basophils Percent Auto 0.9 % (0-2); Eosinophils Absolute Auto 0 /uL (0-450); Eosinophils Percent Auto 0.3 % (2-4); Hematocrit 36.9 % (36-46); Hemoglobin 12.7 g/dL (12.0-16.0); Lymphocytes Absolute Auto 800 /uL (1100-4500); Lymphocytes Percent Auto 11.8 % (25-40); Mean Corpuscular HGB Conc 34.5 % (30-36); Mean Corpuscular Hemoglobin 33.9 PG (26-34); Mean Corpuscular Volume 98.2 fL (80-100); Monocytes Absolute Auto 600 /uL (0-900); Monocytes Percent Auto 9.2 % (3-14); Neutrophils Absolute Auto 5400 /uL (1500-7000); Neutrophils Percent Auto 77.8 % (50-75); Platelet Count 186 X10^3/uL (150-400); Red Blood Cell Count 3.76 X10^6/uL (4.0-5.2); Red Cell Distribution Width 13.9 % (11.6-14.8); White Blood Cell Count 6.9 X10^3/uL (4.5-11.0)
[2025-02-11 12:59] LABS: Erythrocyte Sedimentation Rate 27 MM/HR (0-20)
[2025-02-11 13:12] LABS: Alanine Aminotransferase 30 IU/L (<35); Albumin 4.5 g/dL (3.5-5.0); Albumin Globulin Ratio 1.2 (1.0-2.8); Alkaline Phosphatase 61 U/L (38-126); Aspartate Aminotransferase 40 IU/L (14-36); BUN Creatinine Ratio 24.1 (6-22); Bilirubin Total 0.6 mg/dL (0.2-1.3); Blood Urea Nitrogen 27 mg/dL (7-17); C-Reactive Protein Quant < 0.5 mg/dL (<1.0); Calcium 9.5 mg/dL (8.4-10.2); Carbon Dioxide 25 mmol/L (22-32); Chloride 98 mmol/L (98-107); Estimated Glomerular Filt Rate 52 mL/min (>60); Globulin 3.9 g/dL (1.7-4.1); Glucose 113 mg/dL (70-99); HEMOLYSIS < 15 (0-50); Potassium 4.9 mmol/L (3.4-5.1); Sodium 133 mmol/L (137-145); Total Protein 8.4 g/dL (6.3-8.2)
[2025-02-13 18:08] LABS: Antimyeloperoxidase Antibodies 1.3 units (0.0-0.9); Antiproteinase 3 Antibodies 0.2 units (0.0-0.9); Cytoplasmic C-ANCA <1:20 titer (Neg:<1:20); Perinuclear P-ANCA <1:20 titer (Neg:<1:20)
== END ==
PROVIDERS: PCP Family Medicine; Referring Provider Internal Medicine Nephrology; Visit Provider Internal Medicine Nephrology
DX: N18.31 Chronic kidney disease, stage 3a (principal)
CPT/HCPCS: 36415; 80053; 85025; 85651; 86140; 86256